=== PATIENT | female | born 1995 | race African-American/Black ===

== ENCOUNTER 2021-03-14 11:01 | Outpatient (CLI) | payer BC, SELFPAY ==
[2021-03-14 12:54] LABS: Hepatitis C Virus Antibody Negative (Negative)
[2021-03-14 13:04] LABS: Rapid Plasma Reagin Non-Reactive (NonReactive)
[2021-03-14 13:52] LABS: HIV 1/2 Ab P24 Ag Result Negative (Negative)
[2021-03-19 15:49] LABS: HSV 1 IgM Screen Positive (Negative); HSV 2 IgM Screen Positive (Negative)
[2021-03-19 16:20] LABS: HSV 1 IgM Titer 1:20 (<1:20)
== END 2021-03-14 11:02 | disposition home or self-care (01) ==
LOC: ANHLAB 11:04
PROVIDERS: PCP Obstetrics & Gynecology; Visit Provider Obstetrics & Gynecology
DX: Z11.3 Encounter for screening for infections with a predominantly sexual mode of transmission (principal)
CPT/HCPCS: 36415; 86592; 86695; 86696; 86703; 86803; G0432